=== PATIENT | male | born 1995 | race Two or more races ===

== ENCOUNTER 2018-06-11 19:59 | Emergency (ER) | payer OTHER ==
[~2018-06-11] VITALS: Ht 180.3 cm; Wt 83.9 kg
[2018-06-11 20:20] VITALS: BP 150/80
[2018-06-11] MEDS ORDERED: Dicyclomine HCl 10mg/5ml oral soln ORAL ONE (20:30)
[2018-06-11] MEDS ORDERED: Mylanta II UD 30ml ORAL ONE (20:30)
[2018-06-11] MEDS ORDERED: Lidocaine 2% Visc 15ml soln ORAL ONE (20:30)
[2018-06-11] MEDS ORDERED: RANITIDINE HCL150 MG ORAL (21:09)
[2018-06-11] MEDS ORDERED: ONDANSETRON ODT4 MG BC (21:09)
[2018-06-11] MEDS ORDERED: DICYCLOMINE HCL10 MG PO (21:09)
[2018-06-11 21:15] VITALS: BP 127/68
--- NOTE | 2018-06-11 21:57 | Emergency Room Report ---
History of Present Illness General Chief Complaint: Vomiting Source: Patient Present Illness HPI 22-year-old male presents ED complaining of abdominal pain with vomiting and diarrhea 1 day. Started after he ate tacos at an event. Notes nausea and vomiting and diarrhea. Pain is cramping, 8 out of 10, nonradiating. Notes body aches and chills. Afebrile. Denies recent travel or recent antibiotic use. No other aggravating relieving factors. Denies any other associated symptoms Allergies: Coded Allergies: No Known Allergies (Unverified , 06/11/18) Patient History Past Medical History: none Past Surgical History: none Pertinent Family History: none Social History: Denies: smoking, alcohol use, drug use Immunizations: UTD Reviewed Nursing Documentation: PMH: Agreed; PSxH: Agreed Nursing Documentation-PMH Past Medical History: No Stated History Review of Systems All Other Systems: negative except mentioned in HPI Physical Exam Vital Signs Date Time Temp Pulse Resp B/P (MAP) Pulse Ox O2 Delivery O2 Flow Rate FiO2 06/11/18 20:04 98.6 108 16 152/82 96 Room Air 98.6 Sp02 EP Interpretation: reviewed, normal General Appearance: no apparent distress, alert, GCS 15, non-toxic Head: normocephalic, atraumatic Eyes: bilateral eye normal inspection, bilateral eye PERRL ENT: hearing grossly normal, normal pharynx, no angioedema, normal voice Neck: full range of motion, supple/symm/no masses Respiratory: chest non-tender, lungs clear, normal breath sounds, speaking full sentences Cardiovascular #1: regular rate, rhythm, no edema Cardiovascular #2: 2+ carotid (R), 2+ carotid (L), 2+ radial (R), 2+ radial (L) , 2+ dorsalis pedis (R), 2+ dorsalis pedis (L) Gastrointestinal: normal bowel sounds, soft, non-distended, no guarding, no rebound, tenderness - epigastric Rectal: deferred Genitourinary: normal inspection, no CVA tenderness Musculoskeletal: back normal, gait/station normal, normal range of motion, non- tender Neurologic: alert, oriented x3, responsive, motor strength/tone normal, sensory intact, speech normal Psychiatric: judgement/insight normal, memory normal, mood/affect normal, no suicidal/homicidal ideation Reflexes: 3+ bicep (R), 3+ bicep (L), 3+ tricep (R), 3+ tricep (L), 3+ knee (R) , 3+ knee (L) Skin: normal color, no rash, warm/dry, well hydrated Lymphatic: no adenopathy Medical Decision Making Diagnostic Impression: Primary Impression: Gastroenteritis ER Course Hospital Course 22-year-old M presents to ED with cramping abdominal pain with vomiting, diarrhea differential diagnosis: gastritis, SBO, cholecystits, gastroenteritis Clinical course Patient placed on stretcher. 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 After initial history, physical exam reveals a male in no acute distress. Abdomen soft. No guarding or rebound. No active vomiting. No recent travel or recent antibiotic use. Likely food poisoning versus gastroenteritis. Course is self-limited. Discussed with patient and family. given IM Zofran here, GI cocktail and by mouth Pepcid. Upon reassessment, patient states pain has improved. findings consistent with gastroenteritis Patient safe for discharge with close outpatient follow-up. States he has a PMD I feel this is a highly complex case requiring extensive working including EKG/ Rhythm strip, Xray/CT/US, Blood/urine lab work, repeat exams while in ED, and administration of strong opiates/narcotics for pain control, admission to hospital or close patient follow up. Diagnosis - gastroenteritis Stable and discharged to home with prescriptions for Zantac, zofran, bentyl. Followup with PMD. Return to ED if symptoms recur or worsen Last Vital Signs Date Time Temp Pulse Resp B/P (MAP) Pulse Ox O2 Delivery O2 Flow Rate FiO2 06/11/18 20:20 98.2 16 150/80 98 Room Air 98.2 06/11/18 20:04 108 Status: improved Disposition: HOME, SELF-CARE Condition: Stable Scripts Dicyclomine Hcl* (DICYCLOMINE HCL*) 10 Mg Capsule 10 MG PO QID for 5 Days, CAP Prov: Kehinde Field MD 06/11/18 Ranitidine Hcl* (ZANTAC*) 150 Mg Tablet 150 MG ORAL TWICE A DAY, #30 TAB Prov: Kehinde Field MD 06/11/18 Ondansetron Odt* (ZOFRAN ODT*) 4 Mg Tab.rapdis 4 MG BC EVERY 6 HOURS PRN for Nausea & Vomiting, #30 TAB 0 Refills Prov: Kehinde Field MD 06/11/18 Departure Forms: Return to School Return to School On: Jun 13, 2018 School Release Restrictions: None Patient Instructions: Viral Gastroenteritis, Adult, [id number] Kehinde Field MD Jun 11, 2018 21:57
== END 2018-06-11 21:15 | disposition home or self-care (01) ==
LOC: EMR 20:22
DX: K52.9 Noninfective gastroenteritis and colitis, unspecified (principal)
CPT/HCPCS: 96372; 99283; J2405

== ENCOUNTER 2018-07-02 19:48 | Emergency (ER) | payer OTHER ==
[~2018-07-02] VITALS: Ht 180.3 cm; Wt 81.6 kg
[~2018-07-02 19:48] MED LIST: DICYCLOMINE HCL10 MG PO; ONDANSETRON ODT4 MG BC; RANITIDINE HCL150 MG ORAL
[2018-07-02] MEDS ORDERED: VENTOLIN HFA18 GM INH (20:05)
--- NOTE | 2018-07-02 20:10 | Emergency Room Report ---
History of Present Illness General Chief Complaint: Dyspnea/Respdistress Source: Patient Present Illness HPI The patient is a 22-year-old male presenting for possible asthma exacerbation. He admits to a history of asthma and states that this feels similar. He has been feeling short of breath and has heard wheezing for the past 3 days. He has been using an albuterol inhaler which is 2 years old. This has been helping. He denies any other symptoms including fever, chills, productive cough Allergies: Coded Allergies: No Known Allergies (Unverified , 06/11/18) Patient History Past Medical History: asthma Pertinent Family History: none Reviewed Nursing Documentation: PMH: Agreed; PSxH: Agreed Nursing Documentation-PMH Hx Asthma: Yes Review of Systems All Other Systems: negative except mentioned in HPI Physical Exam Vital Signs Date Time Temp Pulse Resp B/P (MAP) Pulse Ox O2 Delivery O2 Flow Rate FiO2 07/02/18 19:59 98.1 79 16 155/90 97 Room Air Sp02 EP Interpretation: reviewed, normal General Appearance: no apparent distress, alert, GCS 15, non-toxic Head: normocephalic, atraumatic Eyes: bilateral eye normal inspection, bilateral eye PERRL ENT: hearing grossly normal, normal pharynx, no angioedema, normal voice Respiratory: chest non-tender, no respiratory distress, no retraction, no accessory muscle use, speaking full sentences, wheezing - minimal bilat Cardiovascular #1: regular rate, rhythm, no edema Musculoskeletal: back normal, gait/station normal, normal range of motion, non- tender Psychiatric: judgement/insight normal, memory normal, mood/affect normal, no suicidal/homicidal ideation Skin: normal color, no rash, warm/dry, well hydrated Medical Decision Making PA Attestation Dr. Anthony is my supervising physician. Patient management was discussed with my supervising physician Diagnostic Impression: Primary Impression: Asthma Qualified Codes: J45.21 - Mild intermittent asthma with (acute) exacerbation ER Course The patient is a 22-year-old male presenting for possible asthma exacerbation Differential diagnoses considered but not limited to: Asthma exacerbation, bronchitis, pneumonia, anxiety Physical exam: Afebrile. No apparent distress HEENT exam is unremarkable Lungs: Minimal wheezing bilaterally. Chest is nontender. No respiratory distress. No accessory muscle use. The patient was given a breathing treatment and is feeling much better. Lungs sounds have improved. He is minimally tachycardic after the albuterol. Patient is discharged home with a prescription for albuterol and a short course of prednisone and will followup with PMD. ER precautions are given Last Vital Signs Date Time Temp Pulse Resp B/P (MAP) Pulse Ox O2 Delivery O2 Flow Rate FiO2 07/02/18 19:59 98.1 79 16 155/90 97 Room Air Status: improved Disposition: HOME, SELF-CARE Condition: Improved Scripts Prednisone* (PREDNISONE*) 20 Mg Tablet 20 MG ORAL DAILY, #3 TAB 0 Refills Prov: VIOLETTE MARTINEZ 07/02/18 Albuterol Sulfate* (PROAIR HFA*) 8.5 Gm Hfa.aer.ad 2 PUFFS INH Q6H, #8.5 GM 1 Refill Prov: VIOLETTE MARTINEZ 07/02/18 VIOLETTE MARTINEZ Jul 02, 2018 20:10
[2018-07-02] MEDS ORDERED: Ipratropium 0.02% Inh Soln 2.5ml UD HHN ONE (20:15)
[2018-07-02] MEDS ORDERED: Albuterol ud Inhalation HHN ONE (20:15)
[2018-07-02 20:17] VITALS: BP 147/100
[2018-07-02 20:46] VITALS: BP 155/73
[2018-07-02] MEDS ORDERED: PROAIR HFA8.5 GM INH (20:57)
[2018-07-02] MEDS ORDERED: PREDNISONE20 MG ORAL (20:57)
[2018-07-02 21:06] VITALS: BP 155/73
== END 2018-07-02 21:08 | disposition home or self-care (01) ==
LOC: EMR 20:30
DX: J45.21 Mild intermittent asthma with (acute) exacerbation (principal)
CPT/HCPCS: 94640; 94664; 99283